=== PATIENT | female | born 1960 | race Caucasian/White ===

== ENCOUNTER → 2016-06-17 | Outpatient (CLI) | payer BC ==
--- NOTE | 2016-06-17 09:09 | CT ---
EXAMINATION TYPE: CT foot LT wo con DATE OF EXAM: 06/17/2016 7:39 AM COMPARISON: NONE HISTORY: Evaluation Lt midfoot non union CT DLP: DLP 141.3 mGycm Automated exposure control for dose reduction was used. Unenhanced CT of the left foot was performed in the axial coronal and sagittal planes with 3-D recons truction obtained at a separate workstation. Bone and soft tissue window settings are submitted for e valuation. FINDINGS: There is screw fixation noted to involve the left os calcis with solid union identified. In addition there is plate and screw fixation involving the anterior portion of the os calcis with continued visu alization of the fracture or surgical line with incomplete union noted at this time. Alignment appear s anatomic. No additional postoperative changes are seen at this time. The bony structures are diffus kd osteopenic. Advanced degenerative narrowing tibiotalar joint space with subchondral cyst formatio n noted. No evidence for acute fracture or dislocation. No soft tissue mass is identified. IMPRESSION: POSTOPERATIVE CHANGES OF THE OS CALCIS DISCUSSED.
== END | disposition home or self-care (01) ==
LOC: RADCTMAIN 07:03
PROVIDERS: ATTEND Orthopaedic Surgery Foot and Ankle Surgery
DX: M72.2 Plantar fascial fibromatosis (principal); M19.172 Post-traumatic osteoarthritis, left ankle and foot; M66.872 Spontaneous rupture of other tendons, left ankle and foot; Z98.890 Other specified postprocedural states

== ENCOUNTER → 2016-11-27 | Outpatient (CLI) | payer BC ==
--- NOTE | 2016-11-29 07:32 | MM ---
Reason for exam: screening (asymptomatic). Last mammogram was performed 1 year and 5 months ago. History: Patient is postmenopausal and had first child at age 32. Family history of premenopausal breast cancer in maternal cousin. Benign US biopsy breast VAD LT of the left breast, October 27, 2013. Benign US biopsy breast add'l VAD LT of the left breast, October 27, 2013. Benign core biopsy of the left breast, 2009. Took estrogen for 10 years. Physical Findings: A clinical breast exam by your physician is recommended on an annual basis and results should be correlated with mammographic findings. MG Screening Mammo w CAD Bilateral CC and MLO view(s) were taken. Prior study comparison: June 27, 2015, bilateral MG screening mammo w CAD. May 05, 2014, left breast MG diagnostic mammo LT w CAD. March 16, 2013, CAD bilateral diagnostic mammogram. The breast tissue is heterogeneously dense. This may lower the sensitivity of mammography. Previous mammotome biopsy in the left breast x 2. There is chronic nodularity in the left breast. No significant changes when compared with prior studies. ASSESSMENT: Negative, BI-RAD 1 RECOMMENDATION: Routine screening mammogram of both breasts in 1 year.
== END | disposition home or self-care (01) ==
LOC: RADMAMWWP 07:29
PROVIDERS: ATTEND Family Medicine
DX: Z12.31 Encounter for screening mammogram for malignant neoplasm of breast (principal)

== ENCOUNTER → 2016-12-13 | Outpatient (CLI) | payer BC ==
[2016-12-13 10:19] LABS: Anion Gap 11 mmol/L; Blood Urea Nitrogen 16 mg/dL (7-17); Calcium 9.3 mg/dL (8.4-10.2); Carbon Dioxide 28 mmol/L (22-30); Chloride 101 mmol/L (98-107); Glucose 223 mg/dL (74-99); Non-African American GFR(MDRD) 54 (>60 ml/min/1.73 sqM); Potassium 4.2 mmol/L (3.5-5.1); Sodium 140 mmol/L (137-145)
== END | disposition home or self-care (01) ==
LOC: LABWHC1 09:22
PROVIDERS: ATTEND Anesthesiology
DX: Z01.812 Encounter for preprocedural laboratory examination (principal)
CPT/HCPCS: 36415; 80048

== ENCOUNTER 2017-10-29 16:33 | Emergency (ER) | payer BC ==
[2017-10-29] MEDS ORDERED: SODIUM CHLORIDE 0.9% 1,000 ML IV STA (17:47)
--- NOTE | 2017-10-29 18:05 | ED ---
Dizziness HPI - General Chief Complaint: Dizziness Stated Complaint: dizziness/Nausea Time Seen by Provider: 10/29/17 17:35 Source: patient Mode of arrival: ambulatory Limitations: no limitations - History of Present Illness Initial Comments: 56-year-old female patient presents to the emergency department today for evaluation of dizziness, nausea, and fatigue. Patient states that she has been expands any symptoms on and off for the last month. Patient states that they have worsened today. Patient describes the dizziness as feeling off balance like she is going to fall. States that her vision becomes blurred during these episodes. Patient states that she has also been feeling very nauseous, however she is able to keep down food and fluids without vomiting. Patient states that she has been sleeping more than usual and feeling very fatigued like she has no energy. Patient states that she did start Trulicity for her diabetes approximately one month ago. Patient is also reporting tingling to the distal tips of her fingers on both hands. Also reporting tingling to the left great toe. 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 Patient states since she stopped receiving the medications she has had no other problems. Patient has history of hypertension and hyperlipidemia as well. She does have a history of Meniere's disease, but states this dizziness feels different than her usual. Patient denies any chest pain, shortness of breath, unilateral weakness, headaches, back pain, fevers, or chills. Denies any abdominal pain, diarrhea, constipation, hematuria, dysuria, urinary frequency, or urinary urgency. - Related Data Home Medications Medication Instructions Recorded Confirmed L.acidoph,Paracasei, B.lactis 2 cap PO QAM 08/11/15 10/29/17 [Probiotic] Levothyroxine Sodium [Synthroid] 50 mcg PO DAILY 08/11/15 10/29/17 Metoprolol Succinate [Toprol XL] 25 mg PO DAILY 08/11/15 10/29/17 PARoxetine [Paxil] 20 mg PO DAILY 08/11/15 10/29/17 Ramipril [Altace] 5 mg PO DAILY 08/11/15 10/29/17 Triamterene-Hctz 37.5-25Mg 1 tab PO DAILY 08/11/15 10/29/17 [Maxzide 37.5-25] Acetaminophen [Tylenol Extra 1,000 mg PO Q6H PRN 10/29/17 10/29/17 Strength] Dulaglutide [Trulicity] 0.75 mg SQ MO 10/29/17 10/29/17 sitaGLIPtin [Januvia] 100 mg PO DAILY 10/29/17 10/29/17 Allergies Allergy/AdvReac Type Severity Reaction Status Date / Time aspirin Allergy Rash/Hives Verified 10/29/17 18:59 chocolate flavor Allergy Rash/Hives Verified 10/29/17 18:59 bandaid Allergy red and Uncoded 10/29/17 17:07 itchy Review of Systems ROS Statement: Those systems with pertinent positive or pertinent negative responses have been documented in the HPI. ROS Other: All systems not noted in ROS Statement are negative. Past Medical History Past Medical History: Diabetes Mellitus, GERD/Reflux, Hypertension, Pneumonia, Thyroid Disorder Additional Past Medical History / Comment(s): "went into cardiac arrest x 3 from possible seizure", "long QT syndrome", diet control diabetic History of Any Multi-Drug Resistant Organisms: None Reported Past Surgical History: AICD, Breast Surgery, Hysterectomy, Orthopedic Surgery Additional Past Surgical History / Comment(s): ORIF left ankle, left breast biopsy Past Anesthesia/Blood Transfusion Reactions: Postoperative Nausea & Vomiting ( PONV) Type of Cardiac Device: AICD Device Placement Date:: 2004 Past Psychological History: Anxiety, Depression Smoking Status: Never smoker Past Alcohol Use History: None Reported Past Drug Use History: None Reported - Past Family History Mother Family Medical History: Deep Vein Thrombosis (DVT) General Exam Limitations: no limitations General appearance: alert, in no apparent distress, other (This is a well- developed, well-nourished adult female patient acute distress. Vital signs upon presentation are temperature 98.0F, pulse 70 respirations 18, blood pressure 114/73) Eye exam: Present: normal appearance, PERRL, EOMI. Absent: scleral icterus, conjunctival injection, nystagmus, periorbital swelling ENT exam: Present: normal exam, normal oropharynx, mucous membranes moist Respiratory exam: Present: normal lung sounds bilaterally. Absent: respiratory distress, wheezes, rales, rhonchi, stridor Cardiovascular Exam: Present: regular rate, normal rhythm, normal heart sounds. Absent: systolic murmur, diastolic murmur, rubs, gallop, clicks GI/Abdominal exam: Present: soft, normal bowel sounds. Absent: distended, tenderness, guarding, rebound, rigid Neurological exam: Present: alert, oriented X3, CN II-XII intact Expanded Patient oriented to: Present: person, place, time Speech: Present: fluid speech Cranial nerves: EOM's Intact: Normal, Tongue Deviation: Normal, Nystagmus: Normal Cerebellar function: Finger to Nose: Normal Motor strength exam: RUE: 5, LUE: 5, RLE: 5, LLE: 5 Eye Response: (4) open spontaneously Motor Response: (6) obeys commands Verbal Response: (5) oriented [place] Total: 15 Psychiatric exam: Present: normal affect, normal mood Skin exam: Present: warm, dry, intact, normal color. Absent: rash Course Vital Signs 10/29/17 10/29/17 17:04 19:45 Temperature 98 F 98.7 F Pulse Rate 78 68 Respiratory 18 16 Rate Blood Pressure 114/73 119/70 O2 Sat by Pulse 96 98 Oximetry EKG Findings - EKG Comments: EKG Findings:: EKG obtained at 1838 shows normal sinus rhythm with low voltage QRS. No evidence of ST elevation or depression. Ventricular rate is 70, VT interval 206, QRS duration 80, QT 400, QTC 432. Medical Decision Making - Medical Decision Making 56-year-old female patient presents the emergency department today for multiple complaints including dizziness, nausea, and fatigue. Physical examination is unremarkable. Patient is neurologically intact. Labs reviewed. Patient did have presence of white blood cells and some bacteria in her urine, we will send this for culture. CT of the brain showed no acute intracranial abnormalities. I did discuss findings and results with the patient, she is instructed to follow -up with her primary care physician to discuss referral to neurology. Return parameters discussed in detail. She verbalizes understanding and agrees with this plan. - Lab Data Result diagrams: 10/29/17 18:20 10/29/17 18:20 Lab Results 10/29/17 10/29/17 10/29/17 Range/Units 18:20 18:20 18:20 WBC 9.4 (3.8-10.6) k/uL RBC 4.85 (3.80-5.40) m/uL Hgb 14.4 (11.4-16.0) gm/dL Hct 43.4 (34.0-46.0) % MCV 89.4 (80.0-100.0) fL MCH 29.7 (25.0-35.0) pg MCHC 33.2 (31.0-37.0) g/dL RDW 13.6 (11.5-15.5) % Plt Count 249 (150-450) k/uL Neutrophils % 68 % Lymphocytes % 22 % Monocytes % 6 % Eosinophils % 3 % Basophils % 0 % Neutrophils # 6.4 (1.3-7.7) k/uL Lymphocytes # 2.1 (1.0-4.8) k/uL Monocytes # 0.5 (0-1.0) k/uL Eosinophils # 0.3 (0-0.7) k/uL Basophils # 0.0 (0-0.2) k/uL PT 9.6 (9.0-12.0) sec INR 1.0 (<1.2) Sodium 142 (137-145) mmol/L Potassium 4.5 (3.5-5.1) mmol/L Chloride 102 (98-107) mmol/L Carbon Dioxide 30 (22-30) mmol/L Anion Gap 10 mmol/L BUN 22 H (7-17) mg/dL Creatinine 0.90 (0.52-1.04) mg/dL Est GFR (CKD-EPI)AfAm 82 (>60 ml/min/1.73 sqM) Est GFR (CKD-EPI)NonAf 71 (>60 ml/min/1.73 sqM) Glucose 122 H (74-99) mg/dL Calcium 9.7 (8.4-10.2) mg/dL Total Bilirubin 0.6 (0.2-1.3) mg/dL AST 28 (14-36) U/L ALT 33 (9-52) U/L Alkaline Phosphatase 85 (38-126) U/L Troponin I (0.000-0.034) ng/mL Total Protein 7.8 (6.3-8.2) g/dL Albumin 4.6 (3.5-5.0) g/dL Amylase 83 (30-110) U/L Lipase 135 (23-300) U/L TSH 2.140 (0.465-4.680) mIU/L Urine Color Urine Appearance (Clear) Urine pH (5.0-8.0) Ur Specific [place] (1.001-1.035) Urine Protein (Negative) Urine Glucose (UA) (Negative) Urine Ketones (Negative) Urine Blood (Negative) Urine Nitrite (Negative) Urine Bilirubin (Negative) Urine Urobilinogen (<2.0) mg/dL Ur Leukocyte Esterase (Negative) Urine RBC (0-5) /hpf Urine WBC (0-5) /hpf Ur Squamous Epith Cells (0-4) /hpf Amorphous Sediment (None) /hpf 10/29/17 10/29/17 Range/Units 18:20 18:20 WBC (3.8-10.6) k/uL RBC (3.80-5.40) m/uL Hgb (11.4-16.0) gm/dL Hct (34.0-46.0) % MCV (80.0-100.0) fL MCH (25.0-35.0) pg MCHC (31.0-37.0) g/dL RDW (11.5-15.5) % Plt Count (150-450) k/uL Neutrophils % % Lymphocytes % % Monocytes % % Eosinophils % % Basophils % % Neutrophils # (1.3-7.7) k/uL Lymphocytes # (1.0-4.8) k/uL Monocytes # (0-1.0) k/uL Eosinophils # (0-0.7) k/uL Basophils # (0-0.2) k/uL PT (9.0-12.0) sec INR (<1.2) Sodium (137-145) mmol/L Potassium (3.5-5.1) mmol/L Chloride (98-107) mmol/L Carbon Dioxide (22-30) mmol/L Anion Gap mmol/L BUN (7-17) mg/dL Creatinine (0.52-1.04) mg/dL Est GFR (CKD-EPI)AfAm (>60 ml/min/1.73 sqM) Est GFR (CKD-EPI)NonAf (>60 ml/min/1.73 sqM) Glucose (74-99) mg/dL Calcium (8.4-10.2) mg/dL Total Bilirubin (0.2-1.3) mg/dL AST (14-36) U/L ALT (9-52) U/L Alkaline Phosphatase (38-126) U/L Troponin I <0.012 (0.000-0.034) ng/mL Total Protein (6.3-8.2) g/dL Albumin (3.5-5.0) g/dL Amylase (30-110) U/L Lipase (23-300) U/L TSH (0.465-4.680) mIU/L Urine Color Yellow Urine Appearance Cloudy H (Clear) Urine pH 6.0 (5.0-8.0) Ur Specific [place] 1.016 (1.001-1.035) Urine Protein Negative (Negative) Urine Glucose (UA) Negative (Negative) Urine Ketones Negative (Negative) Urine Blood Negative (Negative) Urine Nitrite Negative (Negative) Urine Bilirubin Negative (Negative) Urine Urobilinogen <2.0 (<2.0) mg/dL Ur Leukocyte Esterase Large H (Negative) Urine RBC 5 (0-5) /hpf Urine WBC 57 H (0-5) /hpf Ur Squamous Epith Cells 9 H (0-4) /hpf Amorphous Sediment Rare H (None) /hpf - Radiology Data Radiology results: report reviewed, image reviewed CT of the brain was obtained. The ventricles and sulci appear normal. There is no mass effect or midline shift. There is no sign of intracranial hemorrhage. The calvarium is intact. Impression by Dr. Feldman shows negative computed tomography scan of the brain. Disposition Clinical Impression: Dizziness, Paresthesia Disposition: HOME SELF-CARE Condition: Good Instructions: Paresthesia (ED), Dizziness (ED) Additional Instructions: Change positions slowly. Follow-up with your primary care physician for reevaluation and possible referral to neurology. Return here immediately for any new, worsening, or concerning symptoms. Is patient prescribed a controlled substance at d/c from ED?: No Referrals: Jenny Moore MD [Primary Care Provider] - 1-2 days Time of Disposition: 20:28
[2017-10-29 18:36] LABS: Basophils % (A) 0 %; Eosinophils # (A) 0.3 k/uL (0-0.7); Eosinophils % (A) 3 %; HCT 43.4 % (34.0-46.0); HGB 14.4 gm/dL (11.4-16.0); Lymphocytes # (A) 2.1 k/uL (1.0-4.8); Lymphocytes % (A) 22 %; MCH 29.7 pg (25.0-35.0); MCHC 33.2 g/dL (31.0-37.0); MCV 89.4 fL (80.0-100.0); Mean Platelet Volume 7.3; Monocytes # (A) 0.5 k/uL (0-1.0); Monocytes % (A) 6 %; Neutrophils # (A) 6.4 k/uL (1.3-7.7); Neutrophils % (A) 68 %; Platelet Count 249 k/uL (150-450); RBC 4.85 m/uL (3.80-5.40); RDW 13.6 % (11.5-15.5); WBC 9.4 k/uL (3.8-10.6)
[2017-10-29 18:40] LABS: Amorphous Sediment,Urine Rare /hpf; Appearance,Urine Cloudy (Clear); Bilirubin,Urine Negative (Negative); Blood,Urine Negative (Negative); Color,Urine Yellow; Glucose,Urine (UA) Negative (Negative); Ketones,Urine Negative (Negative); Leukocyte Esterase,Urine Large (Negative); Nitrite,Urine Negative (Negative); Protein,Urine Negative (Negative); RBC,Urine 5 /hpf (0-5); Specific Gravity,Urine 1.016 (1.001-1.035); Squamous Epithelial Cell,Urine 9 /hpf (0-4); Urobilinogen,Urine <2.0 mg/dL (<2.0); WBC,Urine 57 /hpf (0-5)
[2017-10-29 18:46] LABS: Albumin 4.6 g/dL (3.5-5.0); Calcium 9.7 mg/dL (8.4-10.2); Potassium 4.5 mmol/L (3.5-5.1); Total Bilirubin 0.6 mg/dL (0.2-1.3); Total Protein 7.8 g/dL (6.3-8.2)
[2017-10-29 18:53] LABS: Prothrombin Time 9.6 sec (9.0-12.0)
[2017-10-29 19:46] VITALS: RESP 16
[2017-10-29 19:49] VITALS: BP 119/70; PULSE 68; TEMP 98.7
--- NOTE | 2017-10-29 20:01 | CT ---
EXAMINATION TYPE: CT brain wo con DATE OF EXAM: 10/29/2017 COMPARISON: NONE HISTORY: Dizziness. CT DLP: 1150 mGycm Automated exposure control for dose reduction was used. FINDINGS: Ventricles and sulci appear normal. There is no mass effect nor midline shift. There is no sign of in tracranial hemorrhage. The calvarium is intact. IMPRESSION: NEGATIVE CT SCAN OF THE BRAIN.
== END 2017-10-29 20:51 | disposition home or self-care (01) ==
LOC: EC 16:33
DX: R42 Dizziness and giddiness (principal); R20.2 Paresthesia of skin; R11.0 Nausea; R53.83 Other fatigue; R82.71 Bacteriuria; E11.9 Type 2 diabetes mellitus without complications; I10 Essential (primary) hypertension; E07.9 Disorder of thyroid, unspecified; F41.9 Anxiety disorder, unspecified; F32.9 Major depressive disorder, single episode, unspecified; Z95.810 Presence of automatic (implantable) cardiac defibrillator; Z79.84 Long term (current) use of oral hypoglycemic drugs; Z79.899 Other long term (current) drug therapy; Z88.6 Allergy status to analgesic agent; Z91.018 Allergy to other foods; Z91.048 Other nonmedicinal substance allergy status
CPT/HCPCS: 36415; 70450; 80053; 81001; 82150; 83690; 84443; 84484; 85025; 85610; 87086; 93005; 96360; 96361; 99284

== ENCOUNTER → 2018-06-02 | Outpatient (CLI) | payer BC ==
--- NOTE | 2018-06-09 12:08 | MM ---
Reason for exam: screening (asymptomatic). Last mammogram was performed 1 year and 6 months ago. History: Patient is postmenopausal and had first child at age 32. Family history of premenopausal breast cancer in maternal cousin. Benign US biopsy breast VAD LT of the left breast, October 27, 2013. Benign US biopsy breast add'l VAD LT of the left breast, October 27, 2013. Benign core biopsy of the left breast, 2009. Took estrogen for 10 years. MG 3D Screening Mammo W/Cad Bilateral CC and MLO view(s) were taken. Prior study comparison: November 27, 2016, bilateral MG screening mammo w CAD. June 27, 2015, bilateral MG screening mammo w CAD. The breast tissue is heterogeneously dense. This may lower the sensitivity of mammography. There are two previous mammotome biopsies in the left breast. No discrete abnormality. A left axillary pacemaker is noted. A benign axillary lymph node is identified. ASSESSMENT: Benign, BI-RAD 2 RECOMMENDATION: Routine screening mammogram of both breasts in 1 year.
== END | disposition home or self-care (01) ==
LOC: RADMAMWWP 06:53
PROVIDERS: ATTEND Family Medicine
DX: Z12.31 Encounter for screening mammogram for malignant neoplasm of breast (principal)
CPT/HCPCS: 77063; 77067

== ENCOUNTER → 2018-06-12 | Outpatient (CLI) | payer BC ==
--- NOTE | 2018-06-12 08:58 | BD ---
EXAMINATION TYPE: Axial Bone Density DATE OF EXAM: 06/12/2018 COMPARISON: 11.09.2003 CLINICAL HISTORY: 57 YR OLD FEMALE...ICD-10 CODE: Z78.0 POST MENOPAUSAL Height: 68.2 Weight: 194 FRAX RISK QUESTIONS: History of Fracture in Adulthood: YES RISK FACTORS HISTORY OF: HX OF BROKEN ANKLE, IN HER 50'S Active: YES, WORKS Postmenopausal woman: HYST AT AGE 47 Lost more than 2 inches in height since high school: YES MEDICATIONS: Thyroid Medications: YES, SYNTHROID, FOR ABOUT 10 YRS Additional Medications: BP MEDS, TOPRIL, PAXIL, JANUVIA, TRULICITY, Additional History: HEART TROUBLE, HYPERTENSION, DIABETIC, ANXIETY, HX OF CARDIAC ARREST EXAM MEASUREMENTS: Bone mineral densitometry was performed using the [employer] [place] System. Bone mineral density as measured about the Lumbar spine is: ----- L1-L4(G/cm2): 1.232 T Score Values are as follows: ----- L1: -0.4 ----- L2: -0.2 ----- L3: 0.7 ----- L4: 1.2 ----- L1-L4: 0.4 Bone mineral density has: Increased 11.6% since study of: 11.09.2003 Bone mineral density about the R hip (g/cm2): 0.900 Bone mineral density about the L hip (g/cm2): 0.933 T Score values are as follows: -----R Neck: 1.0 -----L Neck: -1.4 -----R Total: -0.9 -----L Total: -0.6 Bone mineral density has: Decreased -0.2% since study of: 11.09.2003 FRAX%s: THERE IS A 12.9% CHANCE FOR A MAJOR OSTEOPOROTIC FX AND A 1.0% FOR HIP.....PROBABILITY OF FX IN 10 YRS TIME IMPRESSION: No evidence for osteoporosis or osteopenia. NOTE: T-SCORE=SD OF THE YOUNG ADULT MEAN.
== END | disposition home or self-care (01) ==
LOC: RADBDWWP 07:04
PROVIDERS: ATTEND Family Medicine
DX: Z13.820 Encounter for screening for osteoporosis (principal); Z78.0 Asymptomatic menopausal state
CPT/HCPCS: 77080

== ENCOUNTER → 2018-10-20 | Outpatient (CLI) | payer BC ==
--- NOTE | 2018-10-20 11:18 | US ---
EXAMINATION TYPE: US abdomen complete DATE OF EXAM: 10/20/2018 COMPARISON: NONE CLINICAL HISTORY: R10.9 Abd pain. Bloating, abdominal pain and burning, nausea with intermittent vomi ting, constipation EXAM MEASUREMENTS: Liver Length: 14.8 cm Gallbladder Wall: 0.3 cm CBD: 0.5 cm Spleen: 11.9 cm Right Kidney: 10.0 x 4.6 x 5.0 cm Left Kidney: 11.7 x 5.0 x 4.5 cm Pancreas: Tail obscured by overlying bowel gas Liver: attenuating, heterogeneous Gallbladder: no evidence of stones Evidence for sonographic Rolon's sign: no CBD: wnl Spleen: appears wnl Right Kidney: no evidence of hydronephrosis Left Kidney: no evidence of hydronephrosis Upper IVC: wnl Abd Aorta: wnl There is no ascites. Kidneys show normal cortical medullary differentiation. IMPRESSION: Correlate for hepatic steatosis, hepatocellular disease.
== END | disposition home or self-care (01) ==
LOC: RADUSWWP 07:04
PROVIDERS: ATTEND Family Medicine
DX: R10.9 Unspecified abdominal pain (principal)
CPT/HCPCS: 76700

== ENCOUNTER → 2019-06-04 | Outpatient (CLI) | payer BC ==
--- NOTE | 2019-06-04 13:47 | MM ---
Reason for exam: additional evaluation requested from abnormal screening. Last mammogram was performed 1 year ago. History: Patient is postmenopausal and had first child at age 32. Family history of premenopausal breast cancer in maternal cousin. Benign US biopsy breast VAD LT of the left breast, October 27, 2013. Benign US biopsy breast add'l VAD LT of the left breast, October 27, 2013. Benign core biopsy of the left breast, 2009. Took estrogen for 10 years. Physical Findings: Nurse Summary: nodule in the left breast at 12 and 6 o'clock (nurse kp). MG 3D Diag Mammo W/Cad DUNG Bilateral CC and MLO view(s) were taken. Prior study comparison: June 02, 2018, bilateral MG 3d screening mammo w/cad. November 27, 2016, bilateral MG screening mammo w CAD. The breast tissue is heterogeneously dense. This may lower the sensitivity of mammography. There are benign appearing 2-3mm bilateral round oval circumscribed masses similar to prior exams. Left biopsy markers at the lower inner quadrant mass. These results were verbally communicated with the patient and result sheet given to the patient on 06/04/19. ASSESSMENT: Incomplete: need additional imaging evaluation, BI-RAD 0 RECOMMENDATION: Ultrasound of the left breast. (palpable)
--- NOTE | 2019-06-04 13:50 | USB ---
Reason for exam: additional evaluation requested from abnormal screening. History: Patient is postmenopausal and had first child at age 32. Family history of premenopausal breast cancer in maternal cousin. Benign US biopsy breast VAD LT of the left breast, October 27, 2013. Benign US biopsy breast add'l VAD LT of the left breast, October 27, 2013. Benign core biopsy of the left breast, 2009. Took estrogen for 10 years. US Breast Limited LT Left limited breast ultrasound including focal area of concern, retroareolar and axilla demonstrates a 0.8 x 0.7 x 0.5cm solid, hypoechoic lesion at 6 o'clock previously biopsied, a 1.0 x 1.5 x 0.4cm solid, hypoechoic lesion at 6 o'clock previously biopsied and a 0.3 x 0.3 x 0.3cm cystic lesion at 12 o'clock at palpable, taller than wide, biopsy recommended. These results were verbally communicated with the patient and result sheet given to the patient on 06/04/19. ASSESSMENT: Suspicious, BI-RAD 4 RECOMMENDATION: Ultrasound core biopsy of the left breast. (12 o'clock) Called Dr. Jenny Moore's office with mammographic findings and has scheduled an appointment for the patient for 06/23/19 at 4:[address] Moore. Biopsy scheduled for 06/14/19 at 2 o'clock. PRELIMINARY REPORT CALLED AND FAXED TO DR. MOORE ON 06/04/19.
== END | disposition home or self-care (01) ==
LOC: RADMAMWWP 10:35
PROVIDERS: ATTEND Family Medicine
DX: N63.23 Unspecified lump in the left breast, lower outer quadrant (principal)
CPT/HCPCS: 77062; 77066

== ENCOUNTER → 2019-06-14 | Day surgery (SDC) | payer BC ==
[2019-06-14 13:16] VITALS: RESP 16
--- NOTE | 2019-06-14 14:24 | USB ---
EXAMINATION TYPE: US biopsy breast VAD LT, MG diagnostic mammo LT wo CAD DATE OF EXAM: 06/14/2019 CLINICAL HISTORY: R92.8 abn mamm. TECHNIQUE: Ultrasound guided core biopsy of left breast. COMPARISON: Left breast ultrasound dated 06/04/2019 FINDINGS: The procedure of ultrasound guided core biopsy was explained to the patient. Benefits, alternatives, and risks were discussed. An informed consent was then obtained. Preprocedural timeout was performed. The patient was placed in supine positioning for imaging and for the procedure. The overlying skin was prepped and draped in usual sterile fashion. 10 cc of 1% lidocaine was used as anesthetic into the skin and subcutaneous tissue up to a probable cyst, although atypical with taller than wide future at the 12:00 position measuring 0.3 cm. Under ultrasound guidance, a 12-gauge vacuum assisted biopsy gun device was used to obtain 2 core samples. After initial biopsy there is complete collapse of the cystic mass. Following this, a ribbon-shaped biopsy marker was left at the site of biopsy. Postprocedure mammogram demonstrates appropriate biopsy marker placement. The patient tolerated the procedure well without any immediate complication. The patient was kept in the radiology department for short stay after the procedure and then discharged home in stable condition. IMPRESSION: Successful, uncomplicated ultrasound guided core biopsy of a 0.3 cm mass at the 12:00 position in the left breast, full pathology results to follow. Pathology Results: High Risk LEFT BREAST, ULTRASOUND GUIDED CORE BIOPSY: Fibrocystic changes including radial scar with moderate usual type ductal hyperplasia, fibrosis and apocrine metaplasia. Recommendation Surgical consult of the left breast. Radial scar, incidental finding. [facility]
[2019-06-14 14:43] VITALS: BP 118/76; PULSE 71; TEMP 98.3
== END ==
LOC: RADUSWWP 12:45
PROVIDERS: ATTEND Surgery
DX: N60.12 Diffuse cystic mastopathy of left breast (principal); N60.82 Other benign mammary dysplasias of left breast
CPT/HCPCS: 88305; 77065; 19083; A4648; J2001

== ENCOUNTER → 2020-03-08 | Outpatient (CLI) | payer BC ==
--- NOTE | 2020-03-13 14:55 | MM ---
Reason for exam: follow-up at short interval from prior study. Last mammogram was performed 9 months ago. History: Patient is postmenopausal, has history of high-risk lesion on a previous biopsy at age 58, and had first child at age 32. Family history of premenopausal breast cancer in maternal cousin. High risk US biopsy breast VAD LT of the left breast, June 14, 2019. Benign US biopsy breast VAD LT of the left breast, October 27, 2013. Benign US biopsy breast add'l VAD LT of the left breast, October 27, 2013. Benign core biopsy of the left breast, 2009. Took estrogen for 10 years. Physical Findings: Nurse did not find any significant physical abnormalities on exam. MG 3D Diag Mammo W/Cad LT CC and MLO view(s) were taken of the left breast. Prior study comparison: June 14, 2019, left breast MG diagnostic mammo LT wo CAD. June 04, 2019, bilateral MG 3d diag mammo w/cad DUNG. The breast tissue is heterogeneously dense. This may lower the sensitivity of mammography. Finding: There is a circumscribed oval lobular mass in the left breast. No significant changes in finding since June 14, 2019 and June 04, 2019. These results were verbally communicated with the patient and result sheet given to the patient on 03/08/20. ASSESSMENT: Incomplete: need additional imaging evaluation, BI-RAD 0 RECOMMENDATION: Ultrasound of the left breast.
--- NOTE | 2020-03-13 14:57 | USB ---
Reason for exam: additional evaluation requested from abnormal screening. History: Patient is postmenopausal, has history of high-risk lesion on a previous biopsy at age 58, and had first child at age 32. Family history of premenopausal breast cancer in maternal cousin. High risk US biopsy breast VAD LT of the left breast, June 14, 2019. Benign US biopsy breast VAD LT of the left breast, October 27, 2013. Benign US biopsy breast add'l VAD LT of the left breast, October 27, 2013. Benign core biopsy of the left breast, 2009. Took estrogen for 10 years. US Breast LT Left complete breast ultrasound includes all four quadrants, the retroareolar region and axilla. Finding demonstrates a 9 x 4 x 6mm oval, solid, hypoechoic lesion at 6 o'clock and a 8 x 3 x 11mm hypoechoic lesion at 6 o'clock. Unchanged from previous. These results were verbally communicated with the patient and result sheet given to the patient on 03/08/20. ASSESSMENT: Probably benign, BI-RAD 3 RECOMMENDATION: Follow-up diagnostic mammogram of both breasts in 3 months. Back on schedule for May 2020.
== END | disposition home or self-care (01) ==
LOC: RADMAMWWP 08:17
PROVIDERS: ATTEND Surgery
DX: R92.8 Other abnormal and inconclusive findings on diagnostic imaging of breast (principal)
CPT/HCPCS: 77061; 77065

== ENCOUNTER → 2020-05-26 | Outpatient (CLI) | payer BC ==
--- NOTE | 2020-05-26 13:47 | MM ---
Reason for exam: follow-up at short interval from prior study. Last mammogram was performed 3 months ago. History: Patient is postmenopausal, has history of high-risk lesion on a previous biopsy at age 58, and had first child at age 32. Family history of premenopausal breast cancer in maternal cousin. High risk US biopsy breast VAD LT of the left breast, June 14, 2019. Benign US biopsy breast VAD LT of the left breast, October 27, 2013. Benign US biopsy breast add'l VAD LT of the left breast, October 27, 2013. Benign core biopsy of the left breast, 2009. Took estrogen for 10 years. Physical Findings: Nurse Summary: 0.5cm nodule in the left breast at 6 o'clock (nurse mj). MG 3D Diag Mammo W/Cad DUNG Bilateral CC and MLO view(s) were taken. Prior study comparison: March 08, 2020, left breast MG 3d diag mammo w/cad LT. June 14, 2019, left breast MG diagnostic mammo LT wo CAD. Finding: There is a typically benign 4 mm equal density (isodense) mass located 8 cm from the nipple in the posterior position of the right breast. Previous mammotome biopsy in the left breast x 3. Focal asymmetry inferior left MLO, stable. No significant changes in finding since March 08, 2020 and June 14, 2019. These results were verbally communicated with the patient and result sheet given to the patient on 05/26/20. ASSESSMENT: Benign, BI-RAD 2 RECOMMENDATION: Routine screening mammogram of both breasts in 1 year.
== END | disposition home or self-care (01) ==
LOC: RADMAMWWP 12:55
PROVIDERS: ATTEND Surgery
DX: R92.8 Other abnormal and inconclusive findings on diagnostic imaging of breast (principal)
CPT/HCPCS: 77062; 77066

== ENCOUNTER → 2020-07-31 | Outpatient (CLI) | payer BC ==
[2020-07-31 08:16] LABS: Appearance,Urine Clear (Clear); Bacteria,Urine Moderate /hpf; Bilirubin,Urine Negative (Negative); Blood,Urine Negative (Negative); Color,Urine Yellow; Glucose,Urine (UA) Negative (Negative); Ketones,Urine Negative (Negative); Leukocyte Esterase,Urine Moderate (Negative); Nitrite,Urine Negative (Negative); Protein,Urine Negative (Negative); RBC,Urine 2 /hpf (0-5); Specific Gravity,Urine 1.018 (1.001-1.035); Squamous Epithelial Cell,Urine 4 /hpf (0-4); Urobilinogen,Urine <2.0 mg/dL (<2.0); WBC,Urine 4 /hpf (0-5)
[2020-07-31 10:46] LABS: Basophils # (A) 0.02 X 10*3/uL (0.00-0.10); Basophils % (A) 0.3 %; Eosinophils # (A) 0.23 X 10*3/uL (0.04-0.35); Eosinophils % (A) 2.9 %; HCT 41.3 % (37.2-46.3); HGB 13.5 g/dL (12.0-15.0); Lymphocytes # (A) 2.24 X 10*3/uL (0.90-5.00); Lymphocytes % (A) 28.7 %; MCH 30.5 pg (27.0-32.0); MCHC 32.7 g/dL (32.0-37.0); MCV 93.2 fL (80.0-97.0); Mean Platelet Volume 10.8 fL (9.5-12.2); Neutrophils # (A) 4.59 X 10*3/uL (1.80-7.70); Neutrophils % (A) 58.7 %; Platelet Count 217 X 10*3/uL (140-440); RBC 4.43 X 10*6/uL (4.10-5.20); RDW 13.7 % (11.5-14.5); WBC 7.81 X 10*3/uL (4.50-10.00)
[2020-07-31 11:51] LABS: Albumin 4.5 g/dL (3.80-4.90); Albumin/Globulin Ratio 2.14 (1.60-3.17); Anion Gap 6.7 mmol/L (4.00-12.00); BUN/Creat Ratio 28.89 Ratio (12.00-20.00); Calcium 9.6 mg/dL (8.7-10.3); Carbon Dioxide 30.3 mmol/L (21.6-31.8); Globulin 2.1 g/dL (1.6-3.3); Phosphorus 3.9 mg/dL (2.4-5.1); Potassium 4.2 mmol/L (3.5-5.5); Total Bilirubin 0.5 mg/dL (0.3-1.2); Total Protein 6.6 g/dL (6.2-8.2)
== END | disposition home or self-care (01) ==
LOC: LABWHC1 07:24
PROVIDERS: ATTEND Family Medicine
DX: N18.32 Chronic kidney disease, stage 3b (principal)
CPT/HCPCS: 36415; 80053; 81001; 84100; 85025

== ENCOUNTER → 2020-08-07 | Outpatient (CLI) | payer BC ==
--- NOTE | 2020-08-07 16:26 | US ---
EXAMINATION TYPE: US kidneys/renal and bladder DATE OF EXAM: 08/07/2020 COMPARISON: NONE CLINICAL HISTORY: N18.32 Chronic kidney disease, stage 3b. EXAM MEASUREMENTS: Right Kidney: 10.3 x 4.5 x 4.5 cm Left Kidney: 10.8 x 5.1 x 5.2 cm Right Kidney: No hydronephrosis or masses seen Left Kidney: No hydronephrosis or masses seen Bladder: wnl There is no evidence for hydronephrosis at this point in time. No nephrolithiasis is seen. No garcia s are identified. The urinary bladder is anechoic. Cortical medullary differentiation is maintained. IMPRESSION: No hydronephrosis
[2020-08-07 18:24] LABS: Total Protein 24 Hour,Urine 84 mg/24hr (42.0-225.0); Total Volume 24 Hour,Urine 1400 mls (800-1800)
== END | disposition home or self-care (01) ==
LOC: RADUSWWP 15:53
PROVIDERS: ATTEND Family Medicine
DX: N18.32 Chronic kidney disease, stage 3b (principal)
CPT/HCPCS: 76770; 81050; 84156

== ENCOUNTER → 2021-04-20 | Outpatient (CLI) | payer BC ==
[2021-04-20 16:40] LABS: Chol/HDL Ratio 4.56 Ratio; LDL Cholesterol,Calculated 126.8 mg/dL (0.0-131.0)
== END | disposition home or self-care (01) ==
LOC: LABWHC1 09:19
PROVIDERS: ATTEND Internal Medicine Clinical Cardiac Electrophysiology
DX: I10 Essential (primary) hypertension (principal); E11.9 Type 2 diabetes mellitus without complications; E78.5 Hyperlipidemia, unspecified; E03.9 Hypothyroidism, unspecified
CPT/HCPCS: 36415; 80061; 84443

== ENCOUNTER → 2021-06-07 | Outpatient (CLI) | payer BC ==
--- NOTE | 2021-06-07 10:47 | MM ---
Reason for exam: screening (asymptomatic). Last mammogram was performed 1 year ago. History: Patient is postmenopausal, has history of high-risk lesion on a previous biopsy at age 58, and had first child at age 32. Family history of premenopausal breast cancer in maternal cousin. High risk US biopsy breast VAD LT of the left breast, June 14, 2019. Benign US biopsy breast VAD LT of the left breast, October 27, 2013. Benign US biopsy breast add'l VAD LT of the left breast, October 27, 2013. Benign core biopsy of the left breast, 2009. Took estrogen for 10 years. Physical Findings: A clinical breast exam by your physician is recommended on an annual basis and results should be correlated with mammographic findings. MG 3D Screening Mammo W/Cad Bilateral CC and MLO view(s) were taken. Prior study comparison: May 26, 2020, bilateral MG 3d diag mammo w/cad DUNG. March 08, 2020, left breast MG 3d diag mammo w/cad LT. The breast tissue is heterogeneously dense. This may lower the sensitivity of mammography. Previous mammotome biopsy in the left breast x 3. There is chronic nodularity in the right breast. There is no discrete abnormality. Left axillary pacemaker. ASSESSMENT: Benign, BI-RAD 2 RECOMMENDATION: Routine screening mammogram of both breasts in 1 year.
--- NOTE | 2021-06-07 16:32 | BD ---
EXAMINATION TYPE: Axial Bone Density DATE OF EXAM: 06/07/2021 COMPARISON: NONE CLINICAL HISTORY: Height: 68 Weight: 194.5 FRAX RISK QUESTIONS: Alcohol (3 or more units per day): no Family History (Parent hip fracture): no Glucocorticoids (More than 3mos): no (Ex: prednisone, prednisolone, methylprednisolone, dexamethasone, and hydrocortisone). History of Fracture in Adulthood: yes Secondary Osteoporosis: 1. Type 1 Diabetes: no 2. Hyperthyroidism: no 3. Menopause before 45: yes 4. Malnutrition: no 5. Chronic liver disease: no Rheumatoid Arthritis: no Current Tobacco Use: no RISK FACTORS HISTORY OF: Surgery to Spine/Hip(right/left)/Wrist (right/left): no Family History of Osteoporosis: no Active: no Diet low in dairy products/other sources of calcium: no Postmenopausal woman: yes Lost more than 2 inches in height since high school: yes MEDICATIONS: diabetic meds Thyroid Medications: levothyroxine How Lon years Additional History: EXAM MEASUREMENTS: Bone mineral densitometry was performed using the 79 Group System. Bone mineral density as measured about the Lumbar spine is: ----- L1-L4(G/cm2): 1.223 T Score Values are as follows: ----- L2: -0.1 ----- L3: 1.1 ----- L4: 0.4 ----- L1-L4: 0.4 Bone mineral density has: decreased -1.1 % since study of: 06.12.2018 Bone mineral density about the R hip (g/cm2): 0.875 Bone mineral density about the L hip (g/cm2): 0.804 T Score values are as follows: -----R Neck: -1.2 -----L Neck: -1.7 -----R Total: -1.2 -----L Total: -1.0 Bone mineral density has: decreased -4.7 % since study of: 06.12.2018 IMPRESSION: Normal (Values between +1 and -1 indicate normal bone mass). Consider repeating this study in 5 year s or sooner if there is some new clinical indication. NOTE: T-SCORE=SD OF THE YOUNG ADULT MEAN.
== END | disposition home or self-care (01) ==
LOC: RADMAMWWP 07:05
PROVIDERS: ATTEND Family Medicine
DX: Z12.31 Encounter for screening mammogram for malignant neoplasm of breast (principal); Z78.0 Asymptomatic menopausal state; Z80.3 Family history of malignant neoplasm of breast
CPT/HCPCS: 77063; 77067; 77080

== ENCOUNTER → 2022-12-02 | Outpatient (CLI) | payer BC ==
--- NOTE | 2022-12-03 19:53 | MM ---
Reason for Exam: Screening (asymptomatic). Last mammogram was performed 1 year(s) and 6 month(s) ago. Patient History: Menarche at age 11. First Full-Term at age 32. Late child-bearing (after 30). Left ovary removed at age 38. Right ovary removed at age 38. Hysterectomy at age 38. Postmenopausal. Patient used Estrogen for 10 years. 2009, Benign Core Biopsy on the left side. 06/14/2019, High risk Core Biopsy on the left side. 10/27/2013, Benign Core Biopsy on the left side. 10/27/2013, Benign Core Biopsy on the left side. Maternal cousin had breast cancer. Risk Values: Mahsa 5 year model risk: 3.3%. NCI Lifetime model risk: 13.4%. Prior Study Comparison: 03/08/2020 Left Diagnostic Mammogram, [facility]. 05/26/2020 Bilateral Diagnostic Mammogram, [facility]. 06/07/2021 Bilateral Screening Mammogram, [facility]. Tissue Density: The breast tissue is heterogeneously dense. This may lower the sensitivity of mammography. Findings: Analyzed By CAD. Microclips in the left breast. Chronic inferior nodularity on the left. There is no suspicious group of microcalcifications or new suspicious mass in either breast. Overall Assessment: Benign, BI-RAD 2 Management: Screening Mammogram of both breasts in 1 year. See note below in regards to patient's increased 5 year Mahsa score. Patient should continue monthly self-breast exams. A clinical breast exam by your physician is recommended on an annual basis. This exam should not preclude additional follow-up of suspicious palpable abnormalities. Note on Mahsa scores and lifetime risk: 1. A Mahsa score greater than 3% is considered moderate risk. If this is the case, consider specialist referral to assess eligibility for a risk reducing agent. 2. If overall lifetime risk for the development of breast cancer is 20% or higher, the patient may qualify for future screening with alternating mammogram and breast MRI. Electronically signed and approved by: Brandyn Martins M.D. Radiologist
== END | disposition home or self-care (01) ==
LOC: RADMAMWWP 08:57
PROVIDERS: ATTEND Family Medicine
DX: Z12.31 Encounter for screening mammogram for malignant neoplasm of breast (principal); Z80.3 Family history of malignant neoplasm of breast; Z78.0 Asymptomatic menopausal state
CPT/HCPCS: 77063; 77067

== ENCOUNTER → 2023-03-10 | Outpatient (CLI) | payer MEDICARE, BC ==
--- NOTE | 2023-03-10 08:04 | XR ---
EXAMINATION TYPE: XR lumbar spine 2 or 3V DATE OF EXAM: 03/10/2023 CLINICAL HISTORY: pain TECHNIQUE: Three views of the lumbar spine are submitted. COMPARISON: None. FINDINGS: There are 5 lumbar type vertebral bodies identified. The lumbar spine shows satisfactory alignment w ithout evidence of acute fracture or dislocation. Vertebral body heights are within normal limits. Mi ld multilevel displacement with endplate sclerosis. Mild multilevel anterior osteophytosis. Multileve l facet arthropathy lower lumbar spine most pronounced at L4-L5 and L5-S1. The overlying soft tissue appears unremarkable. IMPRESSION: 1. No acute fracture or dislocation is seen in the lumbar spine. 2. Mild multilevel degenerative disc disease and facet arthropathy.
--- NOTE | 2023-03-10 08:08 | XR ---
EXAMINATION TYPE: XR knee complete bilateral DATE OF EXAM: 03/10/2023 7:54 AM INDICATION: Patient age:Female; 62 years old; Reason for study: M15.0 Primary OA; PHH. COMPARISON: None. TECHNIQUE: Both knees were examined in Frontal, lateral and oblique projections. FINDINGS: No acute fracture or dislocation. No significant joint space narrowing or spurring. No ames bchondral cystic formation identified. No joint effusion or soft tissue swelling. No radiopaque forei gn body. IMPRESSION: No acute osseous pathology.
--- NOTE | 2023-03-10 08:09 | XR ---
EXAMINATION TYPE: XR Hip Bilateral and AP pelvis DATE OF EXAM: 03/10/2023 7:54 AM INDICATION: Patient age:Female; 62 years old; Reason for study: M15.0 Primary OA; PHH. COMPARISON: None. TECHNIQUE: Both hips were examined in the frontal and lateral projections and a AP pelvis. FINDINGS: No evidence of any acute osseous pathology, joint dislocation, or soft tissue swelling. No significant joint space narrowing or acetabular spurring. Left-sided pelvic phleboliths. IMPRESSION: No acute osseous pathology.
[2023-03-10 11:02] LABS: Basophils # (A) 0.02 X 10*3/uL (0.00-0.10); Basophils % (A) 0.3 %; Eosinophils # (A) 0.48 X 10*3/uL (0.04-0.35); Eosinophils % (A) 8.3 %; HCT 44.3 % (37.2-46.3); HGB 13.8 d/dL (12.0-15.0); Lymphocytes # (A) 0.84 X 10*3/uL (0.90-5.00); Lymphocytes % (A) 14.6 %; MCH 29.1 pg (27.0-32.0); MCHC 31.2 d/dL (32.0-37.0); MCV 93.3 FL (80.0-97.0); Mean Platelet Volume 9.9 FL (9.5-12.2); Monocytes # (A) 0.46 X 10*3/uL (0.20-1.00); NRBC Per 100 WBC 0 X 10*3/uL (0.00-0.01); Neutrophils # (A) 3.96 X 10*3/uL (1.80-7.70); Neutrophils % (A) 68.6 %; Platelet Count 223 X 10*3/uL (140-440); RBC 4.75 X 10*6/uL (4.10-5.20); RDW 14.7 % (11.5-14.5); WBC 5.77 X 10*3/uL (4.50-10.00)
[2023-03-10 11:39] LABS: Hepatitis C IgG Antibody Nonreactive
[2023-03-10 11:46] LABS: ALT 16 U/L (8-44); AST 18 U/L (13-35); Albumin 4.3 d/dL (3.8-4.9); Albumin/Globulin Ratio 1.54 Ratio (1.60-3.17); Alkaline Phosphatase 95 U/L (41-126); Bilirubin, Conjugated <0.20 mg/dL (0.20-0.40); Bilirubin,Unconjugated >0.30 mg/dL (0.20-1.00); C Reactive Protein <0.30 mg/dL (0.00-0.80); Globulin 2.8 d/dL (1.6-3.3); Rheumatoid Factor, Qnt <15 IU/mL (0-15); Total Bilirubin 0.5 mg/dL (0.3-1.2); Total Protein 7.1 d/dL (6.2-8.2)
[2023-03-10 12:38] LABS: Erythrocyte Sedimentation Rate 13 mm/Hr (0-30)
[2023-03-10 16:06] LABS: Cyclic Citrull Pep IgG Unit 2.9 U/mL (<=3.9); Cyclic Citrullinated Pep IgG Negative (Negative)
== END | disposition home or self-care (01) ==
LOC: LABWHC1 06:56
PROVIDERS: ATTEND Internal Medicine Rheumatology
DX: L65.9 Nonscarring hair loss, unspecified (principal); M15.0 Primary generalized (osteo)arthritis; R53.83 Other fatigue; M47.816 Spondylosis without myelopathy or radiculopathy, lumbar region; M51.36 Other intervertebral disc degeneration, lumbar region
CPT/HCPCS: 36415; 72100; 73521; 80076; 82607; 84443; 85025; 85652; 86140; 86200; 86431; 86803

== ENCOUNTER → 2023-03-11 | Outpatient (CLI) | payer MEDICARE, BC | END | disposition home or self-care (01) | LOC: RADBDWWP 16:07 | PROVIDERS: ATTEND Internal Medicine Rheumatology | DX: Z53.9 Procedure and treatment not carried out, unspecified reason (principal) ==

== ENCOUNTER 2023-03-15 03:36 | Emergency (ER) | payer MEDICARE, BC ==
[2023-03-15 04:10] VITALS: RESP 18; TEMP 98.1
--- NOTE | 2023-03-15 04:35 | ED ---
General Adult HPI - General Chief complaint: Abdominal Pain Stated complaint: Abdominal pain, Nausea, Constipation Time Seen by Provider: 03/15/23 03:37 Source: patient, RN notes reviewed, old records reviewed Mode of arrival: ambulatory Limitations: no limitations - History of Present Illness Initial comments: 62 yo female presenting with constipation and lower abdominal pain. Patient states that approximately 2 weeks ago she was diagnosed with urinary tract infection and completed antibiotics. She states over the past 4 days she's had very small amount of stool output in his had to strain to have a bowel movement. She denies upper abdominal pain. No chest pain. No fever. - Related Data Home Medications Medication Instructions Recorded Confirmed L.acidoph,Paracasei, B.lactis 2 cap PO QAM 08/11/15 06/14/19 [Probiotic] Levothyroxine Sodium [Synthroid] 50 mcg PO DAILY 08/11/15 06/14/19 Metoprolol Succinate [Toprol XL] 25 mg PO DAILY 08/11/15 06/14/19 PARoxetine [Paxil] 20 mg PO DAILY 08/11/15 06/14/19 Triamterene-Hctz 37.5-25Mg 1 tab PO DAILY 08/11/15 06/14/19 [Maxzide 37.5-25] ramipriL [Altace] 5 mg PO DAILY 08/11/15 06/14/19 Dulaglutide [Trulicity] 1.5 mg SQ MO 10/29/17 06/14/19 Glimepiride [Amaryl] 2 mg PO AC-BRKFST 06/07/19 06/14/19 Omeprazole 20 mg PO DAILY 06/07/19 06/14/19 Meclizine [Antivert] 25 mg PO DAILY PRN 06/14/19 06/14/19 Previous Rx's Medication Instructions Recorded Docusate [Colace] 100 mg PO BID #60 capsule 03/15/23 polyethylene glycoL 3350 [Miralax] 17 gm PO DAILY #527 gm 03/15/23 Allergies Allergy/AdvReac Type Severity Reaction Status Date / Time aspirin Allergy Dyspnea Verified 03/15/23 03:52 chocolate flavor Allergy Dyspnea Verified 03/15/23 03:52 bandaid Allergy red and Uncoded 03/15/23 03:52 itchy Review of Systems ROS Statement: Those systems with pertinent positive or pertinent negative responses have been documented in the HPI. ROS Other: All systems not noted in ROS Statement are negative. Past Medical History Past Medical History: Diabetes Mellitus, GERD/Reflux, Hypertension, Pneumonia, Thyroid Disorder Additional Past Medical History / Comment(s): "went into cardiac arrest x 3 from possible seizure", "long QT syndrome", diet control diabetic. Menieres disease, Pacemaker and defibrillator History of Any Multi-Drug Resistant Organisms: None Reported Past Surgical History: AICD, Breast Surgery, Hysterectomy, Orthopedic Surgery, Pacemaker Additional Past Surgical History / Comment(s): ORIF left ankle, left breast biopsy. Past Anesthesia/Blood Transfusion Reactions: Postoperative Nausea & Vomiting ( PONV) Type of Cardiac Device: AICD Device Placement Date:: 2004 Past Psychological History: Anxiety, Depression Smoking Status: Never smoker Past Alcohol Use History: None Reported Past Drug Use History: None Reported - Past Family History Mother Family Medical History: Deep Vein Thrombosis (DVT) General Exam Limitations: no limitations General appearance: alert, in no apparent distress Head exam: Present: atraumatic, normocephalic Eye exam: Present: normal appearance, PERRL Neck exam: Present: normal inspection. Absent: tenderness, meningismus Respiratory exam: Present: normal lung sounds bilaterally. Absent: respiratory distress Cardiovascular Exam: Present: regular rate, normal rhythm GI/Abdominal exam: Present: soft, tenderness (During minimal lower abdominal ten derness which is bilateral). Absent: distended, guarding, rebound Extremities exam: Present: normal inspection, normal capillary refill Neurological exam: Present: alert, oriented X3 Psychiatric exam: Present: normal affect, normal mood Course Vital Signs 03/15/23 03/15/23 03:50 05:57 Temperature 98.1 F Pulse Rate 76 77 Respiratory 18 18 Rate Blood Pressure 148/75 134/81 O2 Sat by Pulse 98 98 Oximetry Medical Decision Making - Medical Decision Making Was pt. sent in by a medical professional or institution (, PA, CHIEF EXECUTIVE OR MANAGING DIRECTOR, urgent care, hospital, or [facility]...) When possible be specific @ -No Did you speak to anyone other than the patient for history (EMS, parent, family, police, friend...)? What history was obtained from this source @ -No Did you review nursing and triage notes (agree or disagree)? Why? @ -I reviewed and agree with nursing and triage notes Were old charts reviewed (outside hosp., previous admission, EMS record, old EKG, old radiological studies, urgent care reports/EKG's, [facility] records)? Report findings @ -No old charts were reviewed Differential Diagnosis (chest pain, altered mental status, abdominal pain women, abdominal pain men, vaginal bleeding, weakness, fever, dyspnea, syncope, headache, dizziness, GI bleed, back pain, seizure, CVA, palpatations, mental health, musculoskeletal)? @ -Differential Abdominal Pain Women: Appendicitis, Cholecystitis, diverticulosis, ischemic bowel, pancreatitis, hepatitis, UTI, gastroenteritis, AAA, incarcerated hernia, bowel obstruction, constipation, inflammatory bowel, hepatitis, peptic ulcer disease, splenic infarction, perforated viscus, vulvitis, ovarian torsion, PID, kidney stone, placenta abruption, this is not meant to be an all-inclusive list EKG interpreted by me (3pts min.). @ -As above X-rays interpreted by me (1pt min.). @ -[X-ray shows moderate stool burden without acute findings CT interpreted by me (1pt min.). @ -None done U/S interpreted by me (1pt. min.). @ -None done What testing was considered but not performed or refused? (CT, X-rays, U/S, labs)? Why? @ -None What meds were considered but not given or refused? Why? @ -None Did you discuss the management of the patient with other professionals (professionals i.e. , PA, CHIEF EXECUTIVE OR MANAGING DIRECTOR, lab, RT, psych nurse, oncology social work, hat forming machine feeder, teacher, national insurance officer, case operator)? Give summary @ -No Was smoking cessation discussed for >3mins.? @ -No Was critical care preformed (if so, how long)? @ -No Were there social determinants of health that impacted care today? How? (Homelessness, low income, unemployed, alcoholism, drug addiction, transportation, low edu. Level, literacy, decrease access to med. care, retirement, rehab)? @ -No Was there de-escalation of care discussed even if they declined (Discuss DNR or withdrawal of care, Hospice)? DNR status @ -No What co-morbidities impacted this encounter? (DM, HTN, Smoking, COPD, CAD, Cancer, CVA, ARF, Chemo, Hep., AIDS, mental health diagnosis, sleep apnea, morbid obesity)? @ -None Was patient admitted / discharged? Hospital course, mention meds given and route, prescriptions, significant lab abnormalities, going to OR and other pertinent info. @ -[62-year-old female with abdominal pain which is lower and history of constipation. X-ray does show moderate stool burden without any acute findings. Patient is afebrile and otherwise well-appearing. We will trial stool softeners. Patient's given strict return parameters and will return the emergency department with any worsening or changing symptoms. Undiagnosed new problem with uncertain prognosis? @ -No Drug Therapy requiring intensive monitoring for toxicity (Heparin, Nitro, Insulin, Cardizem)? @ -No Were any procedures done? @ -No Diagnosis/symptom? @ -Abdominal pain Acute, or Chronic, or Acute on Chronic? @ -Acute Uncomplicated (without systemic symptoms) or Complicated (systemic symptoms)? @ -default Side effects of treatment? @ -No Exacerbation, Progression, or Severe Exacerbation? @ -No Poses a threat to life or bodily function? How? (Chest pain, [place], [place], pneumonia, PE, COPD, DKA, ARF, appy, cholecystitis, CVA, Diverticulitis, Homicidal, Suicidal, threat to staff... and all critical care pts) @ -No - Lab Data Lab Results 03/15/23 Range/Units 04:37 Urine Color Yellow Urine Appearance Clear (Clear) Urine pH 6.0 (5.0-8.0) Ur Specific Sheridan 1.015 (1.001-1.035) Urine Protein Negative (Negative) Urine Glucose (UA) 4+ (Negative) Urine Ketones Negative (Negative) Urine Blood Negative (Negative) Urine Nitrite Negative (Negative) Urine Bilirubin Negative (Negative) Urine Urobilinogen <2.0 (<2.0) mg/dL Ur Leukocyte Esterase Small (Negative) Urine RBC 1 (0-5) /hpf Urine WBC 6 H (0-5) /hpf Ur Squamous Epith Cells 1 (0-4) /hpf Disposition Clinical Impression: Abdominal pain Disposition: HOME SELF-CARE Condition: Good Instructions (If sedation given, give patient instructions): Abdominal Pain (ED) Prescriptions: Docusate [Colace] 100 mg PO BID #60 capsule polyethylene glycoL 3350 [Miralax] 17 gm PO DAILY #527 gm Is patient prescribed a controlled substance at d/c from ED?: No Referrals: Boutt,Jenny, MD [Primary Care Provider] - 1-2 days Time of Disposition: 05:50
--- NOTE | 2023-03-15 05:28 | XR ---
EXAMINATION TYPE: XR KUB DATE OF EXAM: 03/15/2023 4:04 AM CLINICAL HISTORY: Abdominal pain. Lower abdominal pain for a week. Lack of bowel movement for one we ek. TECHNIQUE: Two Upright KUB images of the abdomen are obtained. COMPARISON: None. FINDINGS: Gas is seen in nondistended stomach. Scattered gas is seen in non-distended small bowel loo ps. Gas and fecal material is seen in non-distended colon along the periphery. No significant Colonic fecal prominence. There is no visceromegaly, pneumoperitoneum, or abnormal calcification appreciated . There is cardiomegaly with pacemaker/defibrillator leads partially imaged. There is lateral left ba silar opacity consistent with acute infiltrate and/or atelectasis. Osseous structures are intact. IMPRESSION: Overall nonobstructive bowel gas pattern. Note is made of lateral left basilar opacity co nsistent with acute infiltrate and/or atelectasis. Correlate clinically.
[2023-03-15 05:44] LABS: Appearance,Urine Clear (Clear); Color,Urine Yellow; Specific Gravity,Urine 1.015 (1.001-1.035)
[2023-03-15 05:45] LABS: Bilirubin,Urine Negative (Negative); Blood,Urine Negative (Negative); Glucose,Urine (UA) 4+ (Negative); Ketones,Urine Negative (Negative); Leukocyte Esterase,Urine Small (Negative); Nitrite,Urine Negative (Negative); Protein,Urine Negative (Negative); Urobilinogen,Urine <2.0 mg/dL (<2.0)
[2023-03-15 05:52] LABS: RBC,Urine 1 /hpf (0-5); Squamous Epithelial Cell,Urine 1 /hpf (0-4); WBC,Urine 6 /hpf (0-5)
[2023-03-15 06:17] VITALS: BP 134/81; PULSE 77
== END 2023-03-15 05:58 | disposition home or self-care (01) ==
LOC: EC 03:36
DX: K59.00 Constipation, unspecified (principal); I10 Essential (primary) hypertension; E11.9 Type 2 diabetes mellitus without complications; F32.A Depression, unspecified; F41.9 Anxiety disorder, unspecified; K21.9 Gastro-esophageal reflux disease without esophagitis; E07.9 Disorder of thyroid, unspecified; Z79.84 Long term (current) use of oral hypoglycemic drugs; Z79.899 Other long term (current) drug therapy; Z79.890 Hormone replacement therapy
CPT/HCPCS: 74018; 81001; 99284

== ENCOUNTER → 2023-11-03 | Outpatient (CLI) | payer BC, MEDICARE ==
--- NOTE | 2023-11-03 16:34 | US ---
EXAMINATION TYPE: US venous doppler duplex LE RT DATE OF EXAM: 11/03/2023 4:27 PM COMPARISON: NONE CLINICAL INDICATION: Female, 62 years old with history of M79.661 PAIN IN RIGHT LOWER LEG; Right lowe r leg pain SIDE PERFORMED: Right TECHNIQUE: The lower extremity deep venous system is examined utilizing real time linear array sonog fabiola with graded compression, doppler sonography and color-flow sonography. VESSELS IMAGED: Common Femoral Vein Deep Femoral Vein Greater Saphenous Vein * Femoral Vein Popliteal Vein Small Saphenous Vein * Proximal Calf Veins (* superficial vessels) Right Leg: Appears negative for DVT IMPRESSION: Grayscale, color doppler, spectral doppler imaging performed of the deep veins of the lo wer extremities. There is normal flow, compressibility, vascular waveforms.
== END | disposition home or self-care (01) ==
LOC: RADUSWWP 16:08
PROVIDERS: ATTEND Orthopaedic Surgery
DX: S92.331D Displaced fracture of third metatarsal bone, right foot, subsequent encounter for fracture with routine healing (principal); S92.321D Displaced fracture of second metatarsal bone, right foot, subsequent encounter for fracture with routine healing; I80.9 Phlebitis and thrombophlebitis of unspecified site; E11.9 Type 2 diabetes mellitus without complications

== ENCOUNTER → 2023-11-10 | Outpatient (CLI) | payer BC, MEDICARE ==
[2023-11-10 14:52] LABS: Basophils # (A) 0.03 X 10*3/uL (0.00-0.10); Basophils % (A) 0.4 %; Eosinophils # (A) 0.39 X 10*3/uL (0.04-0.35); Eosinophils % (A) 5.5 %; HCT 45.6 % (37.2-46.3); Lymphocytes # (A) 1.47 X 10*3/uL (0.90-5.00); Lymphocytes % (A) 20.7 %; MCH 29.6 pg (27.0-32.0); MCHC 30.7 g/dL (32.0-37.0); MCV 96.4 FL (80.0-97.0); Monocytes # (A) 0.59 X 10*3/uL (0.20-1.00); Monocytes % (A) 8.3 %; NRBC Per 100 WBC 0 X 10*3/uL (0.00-0.01); Neutrophils % (A) 64.7 %; Platelet Count 279 X 10*3/uL (140-440); RBC 4.73 X 10*6/uL (4.10-5.20); RDW 14.3 % (11.5-14.5); WBC 7.11 X 10*3/uL (4.50-10.00)
[2023-11-10 15:06] LABS: Erythrocyte Sedimentation Rate 11 mm/Hr (0-30)
[2023-11-10 15:28] LABS: Blood Urea Nitrogen 20.7 mg/dL (9.0-27.0); Glucose 119 mg/dL (70-110); Magnesium 2.3 mg/dL (1.5-2.4)
[2023-11-10 15:29] LABS: ALT 19 U/L (8-44); AST 22 U/L (13-35); Calcium 10.3 mg/dL (8.7-10.3); Carbon Dioxide 29.3 mmol/L (21.6-31.8); Chloride 100 mmol/L (96-109); Potassium 4.3 mmol/L (3.5-5.5); Sodium 142 mmol/L (135-145); T4, Free (Free Thyroxine) 1.37 ng/dL (0.80-1.80)
== END | disposition home or self-care (01) ==
LOC: LABWHC1 11:00
PROVIDERS: ATTEND Psychiatry & Neurology Neurology
DX: R42 Dizziness and giddiness (principal)
CPT/HCPCS: 36415; 80051; 82310; 82565; 82607; 82746; 82947; 83735; 84100; 84439; 84443; 84450; 84460; 84520; 85025; 85652; 86039; 86592

== ENCOUNTER → 2023-11-14 | Outpatient (CLI) | payer BC, MEDICARE ==
--- NOTE | 2023-11-14 22:50 | CT ---
EXAMINATION TYPE: CT brain wo/w con CT DLP: 9.80 mGycm, Automated exposure control for dose reduction was used. DATE OF EXAM: 11/14/2023 8:01 AM COMPARISON: CT brain 10/29/2017. CLINICAL INDICATION:Female, 62 years old with history of FALL ACCIDENTAL W19.XXXA; PHH, Accidental fa ll with hx of Chiari Malformation and Meniere's disease TECHNIQUE: Axial CT images of the brain were obtained followed by contrast enhanced axial images of t he brain with 100 cc of ISO-view 370 IV contrast. One or more CT dose reduction strategies were utili zed during this examination. Coronal and sagittal reformats reviewed. FINDINGS: Extra-axial spaces: No abnormal extra-axial fluid collections. Ventricular system: Within normal limits Cerebral parenchyma: No acute intraparenchymal hemorrhage or mass effect. The chandler-white junction is well differentiated. No abnormal enhancement is seen after the administration of intravenous contras t. Cerebellum: Low-lying cerebellar tonsils measuring up to 3 mm. Mass effect: No evidence of midline shift. Intracranial vasculature: unremarkable Soft tissues: Normal. Calvarium/osseous structures: No depressed skull fracture. Nasal septal deviation to the right. Paranasal sinuses and mastoid air cells: Clear. Aplasia of the right frontal sinus. Visualized orbits: Orbital contents are intact. IMPRESSION: No acute intracranial process and no evidence to suggest intracranial mass.
== END | disposition home or self-care (01) ==
LOC: RADCTMAIN 07:24
PROVIDERS: ATTEND Nurse Practitioner Acute Care
DX: Z04.3 Encounter for examination and observation following other accident (principal); H81.09 Meniere's disease, unspecified ear; Z87.59 Personal history of other complications of pregnancy, childbirth and the puerperium; W19.XXXA Unspecified fall, initial encounter
CPT/HCPCS: 70470; Q9967

== ENCOUNTER 2024-03-08 07:00 | Day surgery (SDC) | payer BC, MEDICARE ==
[~2024-03-08 07:00] MED LIST: SODIUM CHLORIDE 0.9% 1,000 ML IV SCH
[2024-03-08] MEDS: SODIUM CHLORIDE 0.9% 500 ML 500 ML IV ONE (07:26)
[2024-03-08 07:37] VITALS: RESP 16; TEMP 98.2
[2024-03-08 07:43] LABS: Glucose,Whole Blood 120 mg/dL (70-110)
[2024-03-08 09:17] VITALS: BP 163/87; PULSE 76
--- NOTE | 2024-03-08 11:12 | P.EPPROC ---
- EP Procedure Note Electrophysiology Procedure Note: Diagnosis Recurrent presyncope Twelve-lead EKG sinus mechanism normal OR interval narrow QRS normal QT interval Baseline artifact in the limb leads Tilt table test per protocol baseline blood pressure 115/77 mmHg, baseline heart rate in the 70s Patient was tilted upright in angle of 70 degrees per protocol No drop in blood pressure noted Minimal increase in heart rate into the 90s No evidence for neurocardiogenic syncope Impression Normal twelve-lead EKG Minimal increase in heart rate upon standing less than 20 beats rise No change in blood pressure No evidence for neurocardiogenic syncope
== END 2024-03-08 09:12 | disposition home or self-care (01) ==
LOC: CATHEP 07:00
PROVIDERS: ATTEND Internal Medicine Clinical Cardiac Electrophysiology
CPT/HCPCS: 93660

== ENCOUNTER → 2024-04-23 | Outpatient (CLI) | payer BC, MEDICARE ==
--- NOTE | 2024-04-26 08:40 | MM ---
Reason for Exam: Screening (asymptomatic). Last mammogram was performed 1 year(s) and 5 month(s) ago. Patient History: Menarche at age 11. First Full-Term at age 32. Late child-bearing (after 30). Left ovary removed at age 38. Right ovary removed at age 38. Hysterectomy at age 38. Postmenopausal. Patient used Estrogen for 10 years. 2009, Benign Core Biopsy on the left side. 06/14/2019, High risk Core Biopsy on the left side. 10/27/2013, Benign Core Biopsy on the left side. 10/27/2013, Benign Core Biopsy on the left side. Maternal cousin had breast cancer. Risk Values: Mahsa 5 year model risk: 3.4%. NCI Lifetime model risk: 12.6%. Prior Study Comparison: 05/26/2020 Bilateral Diagnostic Mammogram, [facility]. 06/07/2021 Bilateral Screening Mammogram, [facility]. 12/02/2022 Bilateral MG 3D screening mammo w/cad, [facility]. Tissue Density: The breasts are heterogeneously dense, which may obscure small masses. Findings: Analyzed By CAD. Left breast biopsy clips. Right breast: There is no suspicious group of microcalcifications or new suspicious mass. Left breast: There is no suspicious group of microcalcifications or new suspicious mass. Overall Assessment: Benign, BI-RAD 2 Management: Screening Mammogram of both breasts in [address] [facility] will attempt to contact patient to return for supplemental views and ultrasound if indicated. Patient should continue monthly self-breast exams. A clinical breast exam by your physician is recommended on an annual basis. This exam should not preclude additional follow-up of suspicious palpable abnormalities. Note on Mahsa scores and lifetime risk: 1. A Mahsa score greater than 3% is considered moderate risk. If this is the case, consider specialist referral to assess eligibility for a risk reducing agent. 2. If overall lifetime risk for the development of breast cancer is 20% or higher, the patient may qualify for future screening with alternating mammogram and breast MRI. [facility], , 04/26/2024 8:37 AM. Electronically signed and approved by: Zay Martin DO
== END | disposition home or self-care (01) ==
LOC: RADMAMWWP 07:06
PROVIDERS: ATTEND Family Medicine
DX: Z12.31 Encounter for screening mammogram for malignant neoplasm of breast (principal); Z78.0 Asymptomatic menopausal state; Z80.3 Family history of malignant neoplasm of breast; Z90.722 Acquired absence of ovaries, bilateral; R92.333 Mammographic heterogeneous density, bilateral breasts
CPT/HCPCS: 77063; 77067

== ENCOUNTER → 2024-10-22 | Outpatient (CLI) | payer BC, MEDICARE ==
--- NOTE | 2024-10-22 12:29 | FL ---
EXAMINATION TYPE: FL barium swallow DATE OF EXAM: 10/22/2024 9:12 AM COMPARISON: Chest radiograph from same day. CLINICAL INDICATION:Female, 63 years old with history of R13.12 dysphagia; PHH, TECHNIQUE: The procedure was explained and patient history elicited. All patient questions were ans wered prior to start of procedure. Multiple spot fluoroscopic images of the esophagus were obtained a fter the oral ingestion of effervescent crystals and liquid barium as the contrast agent. 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 The esophagus demonstrates normal primary and second richard peristalsis. The esophageal mucosa is smooth without evidence of focal stricture, ulceration, or abnormal outpouching. No gastroesophageal reflux disease was identified Cardiac conduction device present. IMPRESSION: 1. No significant esophageal dysmotility. 2. Cricopharyngeal bar. [facility], , 10/22/2024 12:27 PM
== END | disposition home or self-care (01) ==
LOC: RADFLMAIN 08:32
PROVIDERS: ATTEND Family Medicine
DX: R13.12 Dysphagia, oropharyngeal phase (principal); R93.3 Abnormal findings on diagnostic imaging of other parts of digestive tract
CPT/HCPCS: 74220